=== PATIENT | male | born 1945 | race Caucasian/White ===

== ENCOUNTER 2017-09-24 08:09 | Emergency (ER) | payer MEDICARE ==
[2017-09-24 08:45] LABS: Bilirubin Negative (Negative); Blood, Urine Negative (Negative); Clarity CLEAR (Clear); Glucose, Urine (Dipstick) Negative (Negative); Leukocyte Negative (Negative); Nitrite Negative (Negative); Protein, Urine (Dipstick) Trace mg/dL (Neg-Trace); Specific Gravity, Urine 1.014 (1.002-1.036); Urobilinogen 0.2 mg/dL (0.2-1.0)
[2017-09-24 09:25] LABS: #Eosinphils 0.1 thou/uL (0.0-0.7); #Lymphocytes 0.9 thou/uL (1.20-3.40); #Monocytes 0.6 thou/uL (0.11-0.59); #Neutrophils 9.2 thou/uL (1.40-6.50); %Basophils 0.3 % (0.0-1.0); %Eosinophils 1.1 % (0.0-10.0); %Lymphocytes 8.3 % (21.0-51.0); %Monocytes 5.2 % (0.0-10.0); %Neutrophils 85.2 % (42.0-75.0); Hemoglobin 15.3 g/dL (14.0-18.0); Mean Corpuscular HGB CONC 34.8 g/dL (32.0-36.0); Mean Corpuscular Hemoglobin 32.9 pg (27.0-31.0); Mean Corpuscular Volume 94.5 fL (78.0-98.0); Platelet Count 139 thou/uL (130-400); RBC Distribution Width 12.7 % (11.5-14.5); Red Blood Cell (RBC) Count 4.64 mill/uL (4.70-6.10); White Blood Cell (WBC) Count 10.8 thou/uL (4.8-10.8)
--- NOTE | 2017-09-24 09:36 | RAD ---
AP VIEW OF THE CHEST: INDICATION: Emergency examination. History of fever. COMPARISON: Prior exam dated 06/13/12. FINDINGS: There is patchy airspace opacity within the left lower lobe. This is new from a comparison exam. Th ere is mild cardiomegaly. There is suspected mitral valvular prosthesis in place. 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 IMPRESSION: Patchy airspace opacity of the left lower lobe suspicious for pneumonia. Recommend radiographic foll owup to resolution. POS: [facility]
[2017-09-24 09:40] LABS: ALT (SGPT) 15 U/L (8-55); AST (SGOT) 18 U/L (5-34); Albumin 4.2 g/dL (3.4-4.8); Alkaline Phosphatase 98 U/L (40-150); Anion Gap 13 mmol/L (10-20); BUN (Urea Nitrogen) 16 mg/dL (8.4-25.7); Bilirubin, Total 1.2 mg/dL (0.2-1.2); CK (CPK) 71 U/L (30-200); Calc. Creatinine Clearance 0 mL/min (70-130); Calcium 10.5 mg/dL (7.8-10.44); Carbon Dioxide 27 mmol/L (23-31); Chloride 103 mmol/L (98-107); Estimated GFR-MDRD 63; Globulin 3.2 g/dL (2.4-3.5); Glucose 93 mg/dL (80-115); Protein, Total 7.4 g/dL (5.8-8.1); Sodium 139 mmol/L (136-145)
[2017-09-24 09:45] LABS: Troponin I Less than 0.010 ng/mL (< 0.028)
[2017-09-24] MEDS ORDERED: cefTRIAXone\\ROCEPHIN 1 GM VIAL ONE (09:57)
[2017-09-24] MEDS ORDERED: Lidocaine 1% PF 5 ML VIAL ONE (09:57)
== END 2017-09-24 10:30 | disposition home or self-care (01) ==
LOC: ERS 08:09
DX: J18.9 Pneumonia, unspecified organism (principal); F43.10 Post-traumatic stress disorder, unspecified; Z79.82 Long term (current) use of aspirin; Z79.899 Other long term (current) drug therapy
CPT/HCPCS: 36415; 71046; 80053; 81003; 82550; 82553; 83605; 84484; 85025; 93005; 96372; J0696; J2001